=== PATIENT | female | born 1980 ===

== ENCOUNTER 2018-09-24 09:13 | Inpatient (IN) | payer OTHER ==
[~2018-09-24] VITALS: Ht 157.5 cm; Wt 79.8 kg
[~2018-09-24 09:13] MED LIST: LOSARTAN-HCTZ1 EACH PO
== END 2018-09-26 15:25 | DRG 743 ==
LOC: ER 09:13 → CIR.AMB 09:13 → OB/GYN 21:33
PROVIDERS: ADMIT Obstetrics & Gynecology Obstetrics
PROC: 0UT70ZZ Resection of Bilateral Fallopian Tubes, Open Approach (ICD-10-PCS; principal; 2018-09-24 10:45)
DX: Z30.2 Encounter for sterilization (principal)